=== PATIENT | female | born 1955 | race Caucasian/White ===

== ENCOUNTER 2016-12-28 11:45 | Emergency (ER) | payer MEDICARE ==
[2016-12-28 12:56] LABS: #Basophils 0.1 thou/uL (0.0-0.2); #Eosinphils 1.1 thou/uL (0.0-0.7); #Monocytes 0.9 thou/uL (0.11-0.59); #Neutrophils 8.9 thou/uL (1.40-6.50); %Basophils 0.5 % (0.0-1.0); %Eosinophils 7.5 % (0.0-10.0); %Lymphocytes 21.3 % (21.0-51.0); %Monocytes 6.3 % (0.0-10.0); Hematocrit 49.4 % (36.0-47.0); Mean Platelet Volume 8.7 fL (7.4-10.4); Red Blood Cell (RBC) Count 5.25 mill/uL (4.20-5.40); White Blood Cell (WBC) Count 13.9 thou/uL (4.8-10.8)
[2016-12-28 13:17] LABS: Lactic Acid - Sepsis 2.5 mmol/L (0.5-2.2)
[2016-12-28 13:23] LABS: ALT (SGPT) 33 U/L (8-55); AST (SGOT) 30 U/L (5-34); Alkaline Phosphatase 113 U/L (40-150); Anion Gap 14 mmol/L (10-20); BUN (Urea Nitrogen) 15 mg/dL (9.8-20.1); Bilirubin, Total 0.4 mg/dL (0.2-1.2); Calc. Creatinine Clearance 0 mL/min (70-130); Calcium 10.5 mg/dL (7.8-10.44); Carbon Dioxide 27 mmol/L (23-31); Chloride 103 mmol/L (98-107); Estimated GFR-MDRD 46; Globulin 3.5 g/dL (2.4-3.5)
--- NOTE | 2016-12-28 14:06 | CT ---
CT FACE WITH IV CONTRAST: HISTORY: Facial infection. Swelling. Fever. FINDINGS: The globes, mandible, and zygomatic arches are intact. Large lobulated mucous retention cyst is appa rent within the right maxillary sinus. No air fluid levels are visible. No retrobulbar orbital lesi ons are evident. There is prominent edema within the right periorbital soft tissues. A well-circums cribed fluid collection is not evident. IMPRESSION: 1. Prominent right periorbital soft tissue edema without drainable abscess or retrobulbar or orbital abnormality. 2. Mucous retention cyst right maxillary sinus. POS: [facility]
[2016-12-28] MEDS ORDERED: ISOVUE-370 76%-LOCM 1 ML ONE (17:22)
== END 2016-12-28 14:57 | disposition home or self-care (01) ==
LOC: ERS 11:45
DX: L03.211 Cellulitis of face (principal); F17.210 Nicotine dependence, cigarettes, uncomplicated; E11.9 Type 2 diabetes mellitus without complications; E78.5 Hyperlipidemia, unspecified; Z79.84 Long term (current) use of oral hypoglycemic drugs; Z79.899 Other long term (current) drug therapy
CPT/HCPCS: 70487; 80053; 83605; 85025; 85652; 86140; 96365; J3370

== ENCOUNTER 2017-01-02 12:10 | Inpatient (IN) | payer MEDICARE ==
[2017-01-02] MEDS: diphenhydrAMINE 25 MG CAP PO PRN ×2 (13:28→17:30)
[2017-01-02 13:46] LABS: #Basophils 0.1 thou/uL (0.0-0.2); #Eosinphils 0.9 thou/uL (0.0-0.7); #Lymphocytes 2.5 thou/uL (1.20-3.40); #Monocytes 0.9 thou/uL (0.11-0.59); #Neutrophils 8.2 thou/uL (1.40-6.50); %Basophils 0.6 % (0.0-1.0); %Eosinophils 6.8 % (0.0-10.0); %Monocytes 7.4 % (0.0-10.0); Hematocrit 48.2 % (36.0-47.0); Mean Platelet Volume 8.2 fL (7.4-10.4); Red Blood Cell (RBC) Count 5.12 mill/uL (4.20-5.40); White Blood Cell (WBC) Count 12.6 thou/uL (4.8-10.8)
[2017-01-02 14:04] LABS: ALT (SGPT) 35 U/L (8-55); AST (SGOT) 24 U/L (5-34); Alkaline Phosphatase 114 U/L (40-150); Anion Gap 13 mmol/L (10-20); BUN (Urea Nitrogen) 19 mg/dL (9.8-20.1); Bilirubin, Total 0.4 mg/dL (0.2-1.2); Calc. Creatinine Clearance 0 mL/min (70-130); Calcium 10.8 mg/dL (7.8-10.44); Carbon Dioxide 27 mmol/L (23-31); Chloride 101 mmol/L (98-107); Estimated GFR-MDRD 41; Globulin 3.1 g/dL (2.4-3.5); Lactic Acid - Sepsis 1.9 mmol/L (0.5-2.2); Protein, Total 7.5 g/dL (6.0-8.3)
[2017-01-02] MEDS ORDERED: cefTRIAXone\\ROCEPHIN 2 GM in Sodium Chloride 0.9% 100 ML IVPB SCH (14:30)
[2017-01-02 15:53] VITALS: BMI 22.6
[2017-01-02] MEDS ORDERED: Ondansetron ODT 4 MG TAB SL PRN (15:53)
[2017-01-02] MEDS ORDERED: Ondansetron HCl/PF 4 MG/2 ML Vial IVP PRN ×2 (15:53→15:59)
[2017-01-02] MEDS ORDERED: Zolpidem Tartrate 5 MG TAB PO PRN (15:59)
[2017-01-02] MEDS ORDERED: Senokot 8.6 MG TAB PO PRN (15:59)
[2017-01-02] MEDS ORDERED: Diabetic Tussin 200 MG/10 ML UDCUP PO PRN (15:59)
[2017-01-02] MEDS ORDERED: Dextrose 5% in Water 1,000 ML IV PRN (15:59)
[2017-01-02] MEDS ORDERED: Milk Of Magnesia 30 ML UDCUP PO PRN (15:59)
[2017-01-02] MEDS ORDERED: Ondansetron ODT 4 MG TAB PO PRN (15:59)
[2017-01-02] MEDS ORDERED: Artificial Tears 18 DROP/0.9 ML EA EYE PRN (15:59)
[2017-01-02] MEDS ORDERED: cefTRIAXone\\ROCEPHIN 1 GM in Sodium Chloride 0.9% 100 ML IVPB SCH (15:59)
[2017-01-02] MEDS ORDERED: Eucerin (Mineral Oil/Petrolatum,White) 30 gm Jar TOP PRN (15:59)
[2017-01-02] MEDS ORDERED: Loperamide HCl 2 MG CAP PO PRN (15:59)
[2017-01-02] MEDS ORDERED: Mag-Al 1200 mg/1200 mg/30 ML UDCUP PO PRN (15:59)
[2017-01-02] MEDS ORDERED: HumaLOG 300 UNITS/3 ML VIAL SC PRN ×2 (15:59)
[2017-01-02] MEDS ORDERED: Dextrose 50% Abboject 50 ML SYRINGE SLOW IVP PRN (15:59)
[2017-01-02] MEDS ORDERED: Sodium Chloride 0.65% Nasal 44 ML BOT EA NARE PRN (15:59)
[2017-01-02] MEDS ORDERED: Chloraseptic Spray 180 ml Bottle PO PRN (15:59)
[2017-01-02] MEDS ORDERED: hydrALAZINE 20 MG/ML VIAL SLOW IVP PRN (15:59)
--- NOTE | 2017-01-02 16:13 | HP ---
PRIMARY CARE PHYSICIAN: Kaia Newby M.D. REASON FOR ADMISSION: Facial cellulitis, failed outpatient therapy. HISTORY OF PRESENT ILLNESS: A 61-year-old female with a history of diabetes, hypertension, and dyslipidemia, who presented to the emergency room for evaluation of facial redness. The patient reports that for the last two weeks, she is experiencing redness on her face which is gradually getting worse. Initially, patient noticed redness around her nose and chin and subsequently that redness spread to her orbit as well as entire right side of face as well as that also spreading to other side of the face as well as in neck area. The patient feels burning sensation in her face. She denies any fever. She is not sure how this started. She does not have any itching. She denies any insect bite. She denies any trauma. She denies any popping any pimples. She denies any nasal pulling of hair. She denies any diplopia or visual symptoms. The patient recently visited emergency room, at that time she had facial bone CT scan which showed soft tissue edema without any drainable fluid collection. The patient was given clindamycin on 12/29/2016. On that emergency room visit, the patient was given vancomycin. The patient reports that even after taking those antibiotics therapies, she is not feeling any better, but feels more worse and that is why she came back again to the emergency room for evaluation. ALLERGIES: CODEINE, FLUCONAZOLE. CURRENT HOME MEDICATIONS: Pravastatin 20 mg p.o. at bedtime, metformin 500 mg twice daily, patient was given clindamycin in recent emergency room visit on . PAST MEDICAL HISTORY: Diabetes type 2, dyslipidemia. PAST SURGICAL HISTORY: Reviewed and negative. PAST PSYCHIATRIC HISTORY: Reviewed and negative. SOCIAL HISTORY: Patient denies any alcohol abuse. She denies any illicit drug abuse. She smokes variable number of cigarettes on a daily basis, but she reports and claims that she is not a heavy smoker. FAMILY HISTORY: No strong family history of premature coronary artery disease, stroke or cancer. EMERGENCY ROOM COURSE: Patient is given vancomycin and Rocephin. REVIEW OF SYSTEMS: The following complete review of systems was negative, unless otherwise mentioned in the HPI or below: Constitutional: Weight loss or gain, ability to conduct usual activities. Skin: Rash, itching. Eyes: Double vision, pain. ENT/Mouth: Nose bleeding, neck stiffness, pain, tenderness. Cardiovascular: Palpitations, dyspnea on exertion, orthopnea. Respiratory: Shortness of breath, wheezing, cough, hemoptysis, fever or night sweats. Gastrointestinal: Poor appetite, abdominal pain, heartburn, nausea, vomiting, constipation, or diarrhea. Genitourinary: Urgency, frequency, dysuria, nocturia. Musculoskeletal: Pain, swelling. Neurologic/Psychiatric: Anxiety, depression. Allergy/Immunologic: Skin rash, bleeding tendency. Please see my HPI for pertinent positives and negatives. All other review of systems reviewed and negative except as mentioned in the HPI. PHYSICAL EXAMINATION: VITAL SIGNS: On arrival, blood pressure 130/78, pulse 80, respiratory rate 16, temperature 97.5, saturation 98% on room air, weight 63.5 kilograms. GENERAL: Patient is currently alert, awake, no obvious acute distress. HEAD: Normocephalic, atraumatic. EYES: The patient does have periorbital edema on the right side. Extraocular muscle intact. No nystagmus. FACE: Patient does have facial erythema on the entire face as well as on the neck and upper part of chest. The patient also has facial edema. NECK: No JVD, no thyromegaly, no carotid bruits. Skin rash noted on the neck, no lymph nodes, no meningeal signs of irritation. LUNGS: Clear to auscultation without any rhonchi or rales. CARDIAC: S1, S2 regular without any murmur, no gallop, no rub. ABDOMEN: Soft, bowel sounds present, nontender, nondistended. No organomegaly , no mass, no suprapubic tenderness. BACK: Unremarkable, no CVA tenderness. EXTREMITIES: Upper extremity passive movement of all joints are normal. Lower extremities: No edema. Good peripheral pulsation. SKIN: The patient does have erythema, warmth, and swelling, most of the face as well as neck and upper chest is involved with this rash with periorbital edema. NEUROLOGIC: Nonfocal examination. SIGNIFICANT LABS: BMP: Sodium 137, potassium 4.0, chloride 101, carbon dioxide 27, anion gap 13, BUN 19, creatinine 1.31, glucose 123, calcium 10.8. LFT: Protein 7.5, albumin 4.4, alkaline phosphatase 114, AST 24, ALT 35. CBC: WBC 12.6, hemoglobin 15.5 , platelets 338. Lactic acid 1.9, facial bone CT scan was done on 12/28/2016 which showing prominent right periorbital soft tissue edema without any drainable abscess, mucous retention cyst in the right maxillary sinus. ASSESSMENT AND PLAN: IMPRESSION: 1. Acute on chronic kidney failure. This patient has elevated creatinine at 1.31. The patient will be given intravenous fluid and we will repeat basic metabolic panel tomorrow. 2. Right-sided facial cellulitis, failed outpatient therapy. At this point, we will continue with broad spectrum antibiotic therapy with vancomycin and Rocephin to cover staphylococcus and streptococcal organism. Dermatitis is in differential. Erysipelas is also in differential. We will consult Dr. Layton for evaluation. We will check CRP, ESR, hepatitis, syphilis and HIV panel. 3. Diabetes type 2. We will continue metformin 500 mg p.o. twice daily and insulin as per sliding scale protocol. Diabetic diet will be given. 4. Dyslipidemia. We will continue pravastatin 20 mg p.o. at bedtime. 5. Tobacco abuse disorder. Smoking cessation counseling given. Healthy lifestyle measures discussed with the patient. 6. Deep venous thrombosis prophylaxis. Lovenox 40 mg subcutaneously daily. 7. Gastrointestinal prophylaxis. Pepcid 20 mg p.o. b.i.d. 8. Code status: The patient is FULL CODE. The patient does not have any surrogate decision maker. Disposition plan based on clinical course, likely this patient will require hospitalization more than 2 midnights. Plan of care discussed with the patient in detail. MTDD
[2017-01-02] MEDS: Sodium Chloride 0.9% 1,000 ML IV SCH ×3 (16:50→20:44)
[2017-01-02] MEDS: metFORMIN 500 MG TAB PO SCH (16:51)
[2017-01-02] MEDS: cefTRIAXone\\ROCEPHIN 1 GM, Syringe 0.4 ML in Sterile Water 9.6 ML SLOW IVP SCH (17:29)
[2017-01-02] MEDS: Loratadine 10 MG TAB PO PRN (17:31)
[2017-01-02] MEDS: Famotidine 20 MG TAB PO SCH (20:23)
[2017-01-02] MEDS: Simvastatin 5 MG TAB PO SCH (20:24)
[2017-01-02] MEDS: Acetaminophen 325 MG TAB PO PRN (20:42)
[2017-01-02] MEDS ORDERED: FLU VACC QS2017-18 36 mo. & older 0.5 ML SYRINGE IM ONE (21:00)
[2017-01-03] MEDS ORDERED: Morphine 4 MG/ML VIAL SLOW IVP SCH (00:15)
[2017-01-03 00:24] LABS: Bilirubin Negative (Negative); Blood, Urine Negative (Negative); Glucose, Urine (Dipstick) Negative (Negative); Ketone, Urine Negative (Negative); Nitrite Negative (Negative); Protein, Urine (Dipstick) Negative (Neg-Trace); Urobilinogen 0.2 mg/dL (0.2-1.0)
[2017-01-03 00:26] LABS: Bacteria/HPF None Seen HPF (None Seen); Hyaline Casts/LPF 0-3 HYALINE CAST LPF (0-3 Hyaline); RBC/HPF 0-3 HPF (0-3); Squamous Epithelial None Seen HPF (0-3); WBC/HPF None Seen HPF (0-3)
[2017-01-03] MEDS: diphenhydrAMINE 25 MG CAP PO PRN ×3 (01:25→19:57)
[2017-01-03] MEDS: Acetaminophen 325 MG TAB PO PRN ×3 (01:25→13:43)
[2017-01-03 04:58] LABS: #Basophils 0.1 thou/uL (0.0-0.2); #Eosinphils 0.8 thou/uL (0.0-0.7); #Lymphocytes 2.6 thou/uL (1.20-3.40); #Monocytes 0.8 thou/uL (0.11-0.59); #Neutrophils 6.3 thou/uL (1.40-6.50); %Basophils 0.9 % (0.0-1.0); %Lymphocytes 24.4 % (21.0-51.0); %Monocytes 7.4 % (0.0-10.0); Hematocrit 42.6 % (36.0-47.0); Red Blood Cell (RBC) Count 4.51 mill/uL (4.20-5.40); White Blood Cell (WBC) Count 10.5 thou/uL (4.8-10.8)
[2017-01-03] MEDS: Sodium Chloride 0.9% 1,000 ML IV SCH ×2 (05:40→17:01)
[2017-01-03 05:41] LABS: Anion Gap 13 mmol/L (10-20); BUN (Urea Nitrogen) 18 mg/dL (9.8-20.1); Calc. Creatinine Clearance 56 mL/min (70-130); Calcium 9.7 mg/dL (7.8-10.44); Carbon Dioxide 26 mmol/L (23-31); Chloride 107 mmol/L (98-107); Estimated GFR-MDRD 54
[2017-01-03] MEDS: Saccharomyces boulardii 250 MG CAP PO SCH (07:53)
[2017-01-03] MEDS: metFORMIN 500 MG TAB PO SCH ×2 (07:53→17:05)
[2017-01-03] MEDS: Famotidine 20 MG TAB PO SCH ×2 (07:53→19:57)
[2017-01-03] MEDS: Enoxaparin Sodium 40 MG/0.4 ML SYRINGE SC SCH (07:55)
--- NOTE | 2017-01-03 11:33 | PDOC.PN ---
- Subjective Encounter Start Date: 01/03/17 Encounter Start Time: 09:00 -: old records requested/rev Patient seen and examined. No new complaints. No overnight events - Objective Resuscitation Status: Resuscitation Status FULL:Full Resuscitation MAR Reviewed: Yes Vital Signs & Weight: Vital Signs (12 hours) Temp Pulse Resp BP BP BP Pulse Ox 01/03/17 11:20 98.6 F 66 16 124/67 96 01/03/17 08:00 98.2 F 60 16 106/54 L 96 01/03/17 07:26 97.5 F L 73 18 01/03/17 04:43 97.5 F L 73 18 108/73 96 01/02/17 23:35 98.2 F 68 16 105/69 I&O: 01/02/17 01/03/17 01/04/17 06:59 06:59 06:59 Intake Total 2400 Balance 2400 Result Diagrams: 01/03/17 04:16 01/03/17 04:16 Additional Labs: Accuchecks 01/03/17 01/02/17 05:45 20:12 POC Glucose 95 103 Phys Exam - Physical Examination Constitutional: NAD HEENT: PERRLA, moist MMs, sclera anicteric fascial cellulitis Neck: no JVD, supple Respiratory: no wheezing, no rales, no rhonchi Cardiovascular: RRR, no significant murmur, no rub Gastrointestinal: soft, non-tender, no distention, positive bowel sounds Musculoskeletal: no edema, pulses present Neurological: non-focal, normal sensation Lymphatic: no nodes Psychiatric: normal affect, A&O x 3 Skin: no rash, normal turgor Dx/Plan (1) Acute kidney failure Status: Resolved (2) Facial cellulitis Code(s): L03.211 - CELLULITIS OF FACE Status: Acute (3) Diabetes type 2, controlled Code(s): E11.9 - TYPE 2 DIABETES MELLITUS WITHOUT COMPLICATIONS Status: Chronic (4) Dyslipidemia Code(s): E78.5 - HYPERLIPIDEMIA, UNSPECIFIED Status: Chronic - Plan cont current plan of care, continue antibiotics * continue iv antibiotics as ordered * medication reviewed as below * symptomatic treatment * ID consulted, await input * follow culture. Review of Systems - Review of Systems ENT: negative: Ear Pain, Ear Discharge, Nose Pain, Nose Discharge, Nose Congestion, Mouth Pain, Mouth Swelling, Throat Pain, Throat Swelling, Other Respiratory: negative: Cough, Dry, Shortness of Breath, Hemoptysis, SOB with Excertion, Pleuritic Pain, Sputum, Wheezing Cardiovascular: negative: Chest Pain, Palpitations, Orthopnea, Paroxysmal Noc. Dyspnea, Edema, Light Headedness, Other Gastrointestinal: negative: Nausea, Vomiting, Abdominal Pain, Diarrhea, Constipation, Melena, Hematochezia, Other Genitourinary: negative: Dysuria, Frequency, Incontinence, Hematuria, Retention , Other Musculoskeletal: negative: Neck Pain, Shoulder Pain, Arm Pain, Back Pain, Hand Pain, Leg Pain, Foot Pain, Other - Medications/Allergies Allergies/Adverse Reactions: Allergies Allergy/AdvReac Type Severity Reaction Status Date / Time codeine Allergy Verified 01/02/17 15:54 fluconazole Allergy Verified 01/02/17 15:54 Medications: Current Medications Acetaminophen (Tylenol) 650 mg PO Q4H PRN PRN Reason: Headache/Fever or Pain Last Admin: 01/03/17 05:40 Dose: 650 mg Al Hydroxide/Mg Hydroxide (Maalox) 30 ml PO Q6H PRN PRN Reason: Heartburn or Indigestion Artificial Tears (Tears Naturale) 0 drop EA EYE PRN PRN PRN Reason: Dry Eyes Dextrose/Water (Dextrose 50%) 25 gm SLOW IVP PRN PRN PRN Reason: Hypoglycemia Diphenhydramine HCl (Benadryl) 25 mg PO Q6H PRN PRN Reason: Itching & Insomnia Last Admin: 01/03/17 01:25 Dose: 25 mg Enoxaparin Sodium (Lovenox) 40 mg SC 0900 [facility] Last Admin: 01/03/17 07:55 Dose: 40 mg Famotidine (Pepcid) 20 mg PO BID [facility] Last Admin: 01/03/17 07:53 Dose: 20 mg Glucagon (Glucagon) 1 mg IM PRN PRN PRN Reason: Hypoglycemia Guaifenesin (Robitussin Sf) 200 mg PO Q4H PRN PRN Reason: Cough Hydralazine HCl (Apresoline) 10 mg SLOW IVP Q4H PRN PRN Reason: Systolic BP > 180 Dextrose/Water (D5w) 1,000 mls @ 0 mls/hr IV .Q0M PRN; As Directed PRN Reason: Hypoglycemia Sodium Chloride (Normal Saline 0.9%) 1,000 mls @ 100 mls/hr IV .Q10H [facility] Last Admin: 01/03/17 05:40 Dose: 1,000 mls Vancomycin HCl 1 gm/ Device 200 mls @ 200 mls/hr IVPB Q24HR@1400 [facility] Ceftriaxone Sodium 1 gm/ (Syringe 0.4 ml/ Sterile Water) 10 mls @ 120 mls/hr SLOW IVP 1800 [facility] Last Admin: 01/02/17 17:29 Dose: 10 mls Insulin Human Lispro (Humalog) 0 units SC .MODERATE SLIDING SC PRN PRN Reason: Moderate Correctional Scale Insulin Human Lispro (Humalog) 0 units SC .BEDTIME SLIDING SC PRN PRN Reason: Bedtime Correctional Scale Loperamide HCl (Imodium) 2 mg PO PRN PRN PRN Reason: Diarrhea/Loose Stools Loratadine (Claritin) 10 mg PO DAILYPRN PRN PRN Reason: Sinus Symptoms Last Admin: 01/02/17 17:31 Dose: 10 mg Magnesium Hydroxide (Milk Of Magnesium) 30 ml PO DAILYPRN PRN PRN Reason: Constipation Metformin HCl (Glucophage) 500 mg PO BID-[facility] Last Admin: 01/03/17 07:53 Dose: 500 mg Mineral Oil/White Petrolatum (Eucerin Cream) 0 gm TOP BIDPRN PRN PRN Reason: Dry Skin Miscellaneous Medication (Pharmacy To Dose) 1 each IVPB PRN PRN PRN Reason: Pharmacy to dose Ondansetron HCl (Zofran Odt) 4 mg PO Q6H PRN PRN Reason: Nausea/Vomiting Ondansetron HCl (Zofran) 4 mg IVP Q6H PRN PRN Reason: Nausea/Vomiting Phenol (Chloraseptic [place] 180 Ml Bot) 0 ml PO PRN PRN PRN Reason: Sore Throat Saccharomyces Boulardii (Florastor) 250 mg PO DAILY [facility] Last Admin: 01/03/17 07:53 Dose: 250 mg Senna (Senokot) 2 tab PO HSPRN PRN PRN Reason: Constipation Simvastatin (Zocor) 10 mg PO HS [facility] Last Admin: 01/02/17 20:24 Dose: 10 mg Sodium Chloride ([place] Nasal [place] 0.65%) 0 ml EA NARE QIDPRN PRN PRN Reason: Nasal Congestion Zolpidem Tartrate (Ambien) 5 mg PO HSPRN PRN PRN Reason: Insomnia
[2017-01-03] MEDS ORDERED: cefTRIAXone\\ROCEPHIN 1 GM, Syringe 0.4 ML in Sterile Water 9.6 ML SLOW IVP SCH (13:00)
[2017-01-03] MEDS ORDERED: Ketorolac Tromethamine 30 MG/ML VIAL IVP PRN (13:55)
[2017-01-03] MEDS ORDERED: Vancomycin HCl 1 GM in Premix Bag 1 BAG IVPB SCH (14:00)
[2017-01-03] MEDS: cefTRIAXone\\ROCEPHIN 1 GM, Syringe 0.4 ML in Sterile Water 9.6 ML SLOW IVP SCH (17:03)
[2017-01-03] MEDS: Loratadine 10 MG TAB PO PRN (17:11)
[2017-01-03] MEDS: Simvastatin 5 MG TAB PO SCH (19:55)
[2017-01-03] MEDS: traMADol HCl 50 MG TAB PO PRN (19:57)
[2017-01-04] MEDS: Sodium Chloride 0.9% 1,000 ML IV SCH ×3 (02:46→23:32)
[2017-01-04] MEDS: diphenhydrAMINE 25 MG CAP PO PRN ×3 (02:46→15:17)
[2017-01-04] MEDS: traMADol HCl 50 MG TAB PO PRN ×3 (02:46→15:17)
[2017-01-04] MEDS: Saccharomyces boulardii 250 MG CAP PO SCH (08:43)
[2017-01-04] MEDS: Famotidine 20 MG TAB PO SCH ×2 (08:43→20:46)
[2017-01-04] MEDS: metFORMIN 500 MG TAB PO SCH ×2 (08:43→17:47)
[2017-01-04] MEDS: Enoxaparin Sodium 40 MG/0.4 ML SYRINGE SC SCH (08:44)
--- NOTE | 2017-01-04 12:17 | PDOC.PN ---
- Subjective Encounter Start Date: 01/04/17 Encounter Start Time: 08:30 no change in fascial rash, no fever, she feels burning and itching - Objective Resuscitation Status: Resuscitation Status FULL:Full Resuscitation MAR Reviewed: Yes Vital Signs & Weight: Vital Signs (12 hours) Temp Pulse Resp BP Pulse Ox 01/04/17 08:00 98.2 F 68 16 129/85 97 01/04/17 04:00 98.1 F 61 20 125/78 94 L I&O: 01/03/17 01/04/17 01/05/17 06:59 06:59 06:59 Intake Total 2400 5530 Balance 2400 5530 Result Diagrams: 01/03/17 04:16 01/03/17 04:16 Additional Labs: Accuchecks 01/04/17 01/04/17 01/03/17 10:57 04:50 19:56 POC Glucose 108 115 H 127 H 01/03/17 16:53 POC Glucose 78 Phys Exam - Physical Examination Constitutional: NAD HEENT: PERRLA (f), moist MMs fascial rash Neck: no JVD, supple Respiratory: no wheezing, no rales, no rhonchi Cardiovascular: RRR, no significant murmur, no rub Gastrointestinal: soft, non-tender, no distention, positive bowel sounds Musculoskeletal: no edema, pulses present Neurological: non-focal, normal sensation Lymphatic: no nodes Psychiatric: normal affect, A&O x 3 Skin: normal turgor Deviation from normal: fascial rash Dx/Plan (1) Acute kidney failure Status: Resolved (2) Facial cellulitis Code(s): L03.211 - CELLULITIS OF FACE Status: Acute (3) Diabetes type 2, controlled Code(s): E11.9 - TYPE 2 DIABETES MELLITUS WITHOUT COMPLICATIONS Status: Chronic (4) Dyslipidemia Code(s): E78.5 - HYPERLIPIDEMIA, UNSPECIFIED Status: Chronic - Plan cont current plan of care, continue antibiotics * Dr Layton opinion pending * so far does not see any change with antibiotics * medication reviewed as below * symptomatic treatment * will need dermatology on discharge. Review of Systems - Review of Systems ENT: negative: Ear Pain, Ear Discharge, Nose Pain, Nose Discharge, Nose Congestion, Mouth Pain, Mouth Swelling, Throat Pain, Throat Swelling, Other Respiratory: negative: Cough, Dry, Shortness of Breath, Hemoptysis, SOB with Excertion, Pleuritic Pain, Sputum, Wheezing Cardiovascular: negative: Chest Pain, Palpitations, Orthopnea, Paroxysmal Noc. Dyspnea, Edema, Light Headedness, Other Gastrointestinal: negative: Nausea, Vomiting, Abdominal Pain, Diarrhea, Constipation, Melena, Hematochezia, Other Genitourinary: negative: Dysuria, Frequency, Incontinence, Hematuria, Retention , Other Musculoskeletal: negative: Neck Pain, Shoulder Pain, Arm Pain, Back Pain, Hand Pain, Leg Pain, Foot Pain, Other Skin: negative: Rash, Lesions, Ismael, Bruising, Other - Medications/Allergies Allergies/Adverse Reactions: Allergies Allergy/AdvReac Type Severity Reaction Status Date / Time codeine Allergy Verified 01/02/17 15:54 fluconazole Allergy Verified 01/02/17 15:54 Medications: Current Medications Acetaminophen (Tylenol) 650 mg PO Q4H PRN PRN Reason: Headache/Fever or Pain Last Admin: 01/03/17 13:43 Dose: 650 mg Al Hydroxide/Mg Hydroxide (Maalox) 30 ml PO Q6H PRN PRN Reason: Heartburn or Indigestion Artificial Tears (Tears Naturale) 0 drop EA EYE PRN PRN PRN Reason: Dry Eyes Dextrose/Water (Dextrose 50%) 25 gm SLOW IVP PRN PRN PRN Reason: Hypoglycemia Diphenhydramine HCl (Benadryl) 25 mg PO Q6H PRN PRN Reason: Itching & Insomnia Last Admin: 01/04/17 08:42 Dose: 25 mg Enoxaparin Sodium (Lovenox) 40 mg SC 0900 [facility] Last Admin: 01/04/17 08:44 Dose: Not Given Famotidine (Pepcid) 20 mg PO BID [facility] Last Admin: 01/04/17 08:43 Dose: 20 mg Glucagon (Glucagon) 1 mg IM PRN PRN PRN Reason: Hypoglycemia Guaifenesin (Robitussin Sf) 200 mg PO Q4H PRN PRN Reason: Cough Hydralazine HCl (Apresoline) 10 mg SLOW IVP Q4H PRN PRN Reason: Systolic BP > 180 Dextrose/Water (D5w) 1,000 mls @ 0 mls/hr IV .Q0M PRN; As Directed PRN Reason: Hypoglycemia Sodium Chloride (Normal Saline 0.9%) 1,000 mls @ 100 mls/hr IV .Q10H [facility] Last Admin: 01/04/17 02:46 Dose: 1,000 mls Vancomycin HCl 1 gm/ Device 200 mls @ 200 mls/hr IVPB Q24HR@1400 [facility] Last Admin: 01/03/17 13:44 Dose: 200 mls Ceftriaxone Sodium 1 gm/ (Syringe 0.4 ml/ Sterile Water) 10 mls @ 120 mls/hr SLOW IVP 1800 [facility] Last Admin: 01/03/17 17:03 Dose: 10 mls Insulin Human Lispro (Humalog) 0 units SC .MODERATE SLIDING SC PRN PRN Reason: Moderate Correctional Scale Insulin Human Lispro (Humalog) 0 units SC .BEDTIME SLIDING SC PRN PRN Reason: Bedtime Correctional Scale Ketorolac Tromethamine (Toradol) 15 mg IVP Q6H PRN PRN Reason: Moderate to Severe Pain (6-10) Stop: 01/08/17 13:56 Loperamide HCl (Imodium) 2 mg PO PRN PRN PRN Reason: Diarrhea/Loose Stools Loratadine (Claritin) 10 mg PO DAILYPRN PRN PRN Reason: Sinus Symptoms Last Admin: 01/03/17 17:11 Dose: 10 mg Magnesium Hydroxide (Milk Of Magnesium) 30 ml PO DAILYPRN PRN PRN Reason: Constipation Metformin HCl (Glucophage) 500 mg PO BID-[facility] Last Admin: 01/04/17 08:43 Dose: 500 mg Mineral Oil/White Petrolatum (Eucerin Cream) 0 gm TOP BIDPRN PRN PRN Reason: Dry Skin Miscellaneous Medication (Pharmacy To Dose) 1 each IVPB PRN PRN PRN Reason: Pharmacy to dose Ondansetron HCl (Zofran Odt) 4 mg PO Q6H PRN PRN Reason: Nausea/Vomiting Ondansetron HCl (Zofran) 4 mg IVP Q6H PRN PRN Reason: Nausea/Vomiting Phenol (Chloraseptic [place] 180 Ml Bot) 0 ml PO PRN PRN PRN Reason: Sore Throat Saccharomyces Boulardii (Florastor) 250 mg PO DAILY [facility] Last Admin: 01/04/17 08:43 Dose: 250 mg Senna (Senokot) 2 tab PO HSPRN PRN PRN Reason: Constipation Simvastatin (Zocor) 10 mg PO [facility] Last Admin: 01/03/17 19:55 Dose: 10 mg Sodium Chloride ([place] Nasal [place] 0.65%) 0 ml EA NARE QIDPRN PRN PRN Reason: Nasal Congestion Tramadol HCl (Ultram) 50 mg PO Q4H PRN PRN Reason: Moderate to Severe Pain (6-10) Last Admin: 01/04/17 08:42 Dose: 50 mg Zolpidem Tartrate (Ambien) 5 mg PO HSPRN PRN PRN Reason: Insomnia
--- NOTE | 2017-01-04 13:15 | CON ---
DATE OF CONSULTATION: 01/04/2017 REASON FOR CONSULTATION: Facial inflammatory changes. HISTORY OF PRESENT ILLNESS: A 61-year-old with history of type 2 diabetes and dyslipidemia, who live s in [place], and has had 2-3 weeks history of facial redness with markedly pruritus. No specific exposure and inflammatory process seems to be spreading towards the upper areas of the chest and neck . Also, she noticed pruritic erythematous lesions in the extensor aspect of forearms. No fever or c hills. No headaches, no visual symptoms, sore throat, odynophagia, dysphagia. No neck pain. No jayant st pain or cough. No dyspnea. No abdominal pain or diarrhea. No genitourinary symptoms. Has been gaining some weight lately. No joint symptoms. PAST MEDICAL HISTORY: Type 2 diabetes and dyslipidemia. MEDICATIONS: Pravastatin, metformin, clindamycin, and currently she is receiving ceftriaxone, diphen hydramine, Zocor, vancomycin. FAMILY HISTORY: Noncontributory. SOCIAL HISTORY: Current smoker. Lives in [place]. ALLERGIES: CODEINE and FLUCONAZOLE. PHYSICAL EXAMINATION: VITAL SIGNS: Showed normal temperature, blood pressure 120/85, pulse 68, respirations 16, O2 sat 97% . SKIN: Shows area of extensive erythema in a very symmetric distribution, a little bit more intense o n the right side of face, spreading towards the neck, upper chest and extensor aspect of right and le ft forearms. There is associated exfoliation with this eruption particularly in the facial area. Sh e has loss of eyelids and some element of lichenification. NECK: No lymphadenopathy. HEENT: Sclerae and conjunctivae normal. Nasal passage is patent. Oral cavity with no [place] teeth, otherwise normal. Oral cavity mucosa with surfaces. NECK: Supple, no jugular venous distention. LUNGS: Clear to auscultation and percussion. HEART: S1, S2, regular rate. No S3, S4. ABDOMEN: Soft, not distended or tender. No ascites. No bladder distention. EXTREMITIES: No joint inflammatory activity. Pulses are 1+ in dorsalis pedis. Plantar responses we re flexor. Moves extremities equally. NEUROLOGIC: Cognitive function appears to be intact. LABORATORY DATA: The serologies for syphilis, hepatitis and HIV negative. White cell count 12.6 and 10.5, hemoglobin 15, platelets 296, normal differential with a little bit of lymphocytopenia. Chemi stry; creatinine is 1.3 on arrival and 1.04, glucose 123 and 92. Liver profile normal, calcium 10.8 and 9.7, albumin 4.4. Urinalysis was normal. Facial bones CT with right periorbital edema, no absce ss. ASSESSMENT: 1. Diabetes type 2. 2. Facial neck and extremity erythema which is chronic with lichenification associated with pruritus . DISCUSSION: Most likely scenario with differential diagnosis includes contact dermatitis versus syst emic type for hypersensitivity reaction with the changes described. Infectious process appears to be less likely. Switch her to topical corticosteroids, may need systemic as well, although with diabet es that would be somewhat problematic, but we will start with systemic or maybe with a Medrol Dosepak and then a little bit of topical as well.
[2017-01-04] MEDS: methylPREDNISolone 4 mg Tablet PO SCH ×3 (13:59→20:46)
[2017-01-04] MEDS: Simvastatin 5 MG TAB PO SCH (20:46)
[2017-01-04] MEDS: ALCLOMETASONE DIPROPIONATE TOP SCH (21:24)
[2017-01-04] MEDS: Hydrocortisone 1% Cream 30 GM TUBE TOP SCH (21:26)
[2017-01-05] MEDS: Sodium Chloride 0.9% 1,000 ML IV SCH (00:15)
[2017-01-05 07:51] VITALS: BP 119/71; TEMP 98.3
[2017-01-05] MEDS: Acetaminophen 325 MG TAB PO PRN (07:59)
[2017-01-05] MEDS: metFORMIN 500 MG TAB PO SCH (08:00)
[2017-01-05] MEDS ORDERED: methylPREDNISolone 4 mg Tablet PO SCH ×3 (08:00→21:00)
[2017-01-05] MEDS: Saccharomyces boulardii 250 MG CAP PO SCH (08:00)
[2017-01-05] MEDS: Famotidine 20 MG TAB PO SCH (08:00)
[2017-01-05] MEDS: Enoxaparin Sodium 40 MG/0.4 ML SYRINGE SC SCH (08:01)
[2017-01-05] MEDS: Hydrocortisone 1% Cream 30 GM TUBE TOP SCH (08:02)
[2017-01-05] MEDS: ALCLOMETASONE DIPROPIONATE TOP SCH (08:03)
--- NOTE | 2017-01-05 12:32 | PDOC.PN ---
- Subjective Encounter Start Date: 01/05/17 Encounter Start Time: 10:40 Patient seen and examined. No new complaints. No overnight events - Objective Resuscitation Status: Resuscitation Status FULL:Full Resuscitation MAR Reviewed: Yes Vital Signs & Weight: Vital Signs (12 hours) Temp Pulse Resp BP Pulse Ox 01/05/17 08:00 98.3 F 68 15 119/71 01/05/17 07:51 98.3 F 68 16 119/71 92 L 01/05/17 05:27 93 L 01/05/17 04:00 98.0 F 70 20 116/71 92 L I&O: 01/04/17 01/05/17 01/06/17 06:59 06:59 06:59 Intake Total 5530 Balance 5530 Result Diagrams: 01/03/17 04:16 01/03/17 04:16 Additional Labs: Accuchecks 01/05/17 01/04/17 01/04/17 11:15 19:56 17:14 POC Glucose 158 H 149 H 105 Phys Exam - Physical Examination Constitutional: NAD HEENT: PERRLA, moist MMs, sclera anicteric Neck: no JVD, supple Respiratory: no wheezing, no rales, no rhonchi Cardiovascular: RRR, no significant murmur Gastrointestinal: soft, non-tender, no distention, positive bowel sounds Musculoskeletal: no edema, pulses present Neurological: non-focal, normal sensation Psychiatric: normal affect, A&O x 3 Skin: normal turgor Deviation from normal: fascial dermatitis Dx/Plan (1) Acute kidney failure Status: Resolved (2) Facial cellulitis Code(s): L03.211 - CELLULITIS OF FACE Status: Acute (3) Diabetes type 2, controlled Code(s): E11.9 - TYPE 2 DIABETES MELLITUS WITHOUT COMPLICATIONS Status: Chronic (4) Dyslipidemia Code(s): E78.5 - HYPERLIPIDEMIA, UNSPECIFIED Status: Chronic - Plan cont current plan of care * medication reviewed as below * symptomatic treatment * see discharge matty. Review of Systems - Review of Systems ENT: negative: Ear Pain, Ear Discharge, Nose Pain, Nose Discharge, Nose Congestion, Mouth Pain, Mouth Swelling, Throat Pain, Throat Swelling, Other Respiratory: negative: Cough, Dry, Shortness of Breath, Hemoptysis, SOB with Excertion, Pleuritic Pain, Sputum, Wheezing Cardiovascular: negative: Chest Pain, Palpitations, Orthopnea, Paroxysmal Noc. Dyspnea, Edema, Light Headedness, Other Gastrointestinal: negative: Nausea, Vomiting, Abdominal Pain, Diarrhea, Constipation, Melena, Hematochezia, Other Genitourinary: negative: Dysuria, Frequency, Incontinence, Hematuria, Retention , Other Musculoskeletal: negative: Neck Pain, Shoulder Pain, Arm Pain, Back Pain, Hand Pain, Leg Pain, Foot Pain, Other Skin: Rash. negative: Lesions, Ismael, Bruising, Other - Medications/Allergies Allergies/Adverse Reactions: Allergies Allergy/AdvReac Type Severity Reaction Status Date / Time codeine Allergy Verified 01/02/17 15:54 fluconazole Allergy Verified 01/02/17 15:54
--- NOTE | 2017-01-05 13:28 | DIS ---
PRIMARY CARE PHYSICIAN: [facility] call admission. DATE OF ADMISSION: 01/02/2017 DATE OF DISCHARGE: 01/05/2017 DISCHARGE DISPOSITION: Home. PRIMARY DISCHARGE DIAGNOSES: Facial dermatitis, acute kidney failure improved. SECONDARY DISCHARGE DIAGNOSES: Diabetes type 2, dyslipidemia, anxiety and depression. PRIMARY PROCEDURE/OPERATION: None. RADIOLOGICAL INVESTIGATION: Facial bone CT scan which was done on 12/28/2016 showed facial skin josh a without any abscess. SIGNIFICANT LABORATORIES: WBC 10.5, hemoglobin 13.8, platelet 296, ESR 2. Sodium 141, potassium 4.5 , BUN 18, creatinine 1.04, calcium 9.7. CRP less than 0.50. LFTs normal. Creatinine on admission 1 .31. Urinalysis normal. Hepatitis profile negative. HIV negative. Syphilis negative. Blood cultu re negative. DISCHARGE MEDICATIONS: Patient is given prescription of Medrol Dosepak to use as directed. The dania ent is given prescription for alclometasone dipropionate cream topical application b.i.d., Pepcid 20 mg p.o. b.i.d., fluoxetine 20 mg p.o. daily, metformin 500 mg p.o. b.i.d., pravastatin 20 mg p.o. at bedtime. CONTRAINDICATIONS: None. CODE STATUS: FULL CODE. INPATIENT CONSULTANTS: Dr. Layton was consulted while in hospital and he was not thinking that the fe briceño has cellulitis rather he was thinking dermatitis. ALLERGIES: CODEINE and FLUCONAZOLE. DISCHARGE PLAN: Post hospital, the patient will follow up with primary care physician and I advised the patient to follow up with automatic grinding machine operator for further evaluation. HOSPITAL COURSE: The patient is a 61-year-old female who reports that she was taking Diflucan for ye ast infection and after that she had correlation with a facial rash. Her rash was spread very rapidl y to the entire face as well as neck and upper part of chest. It was burning and itchy. The patient was presented to emergency room before admission and she had a CT facial bone which showed skin wall edema, but no abscess. She was given oral antibiotic therapy, but she did not have any improvement with antibiotic therapy. She came back in hospital and we considered as she failed outpatient therap y and kept in hospital and we tried with vancomycin and Rocephin for facial cellulitis. Even with IV antibiotic therapy, the patient's facial cellulitis was not improving and her ESR and CRP was normal . At that point, we suspected that the patient most likely has dermatitis. We treated her with a Me drol Dosepak and steroid topical application. Necessary patient education was given. Dr. Layton saw t his patient while in hospital and he agreed with the facial dermatitis diagnosis and I advised this p atient to follow up with Dermatology for further care. On admission, she had mild acute kidney injur y that was improved with IV fluid. All new medication prescription given. The patient is seen and examined at bedside today. Please se e my progress note from today for further details. Total time spent on discharge day 31 minutes.
[2017-01-06] MEDS ORDERED: methylPREDNISolone 4 mg Tablet PO SCH (08:00)
[2017-01-07] MEDS ORDERED: methylPREDNISolone 4 mg Tablet PO SCH (08:00)
[2017-01-08] MEDS ORDERED: methylPREDNISolone 4 mg Tablet PO SCH (08:00)
[2017-01-09] MEDS ORDERED: methylPREDNISolone 4 mg Tablet PO SCH (08:00)
== END 2017-01-05 11:16 | disposition home or self-care (01) | DRG 607 ==
LOC: ERS 12:10 → T4-A 14:30
PROVIDERS: ADMIT Internal Medicine; ATTEND Internal Medicine
DX: L30.9 Dermatitis, unspecified (principal); N17.9 Acute kidney failure, unspecified; I10 Essential (primary) hypertension; E11.9 Type 2 diabetes mellitus without complications; F32.9 Major depressive disorder, single episode, unspecified; E78.5 Hyperlipidemia, unspecified; Z88.5 Allergy status to narcotic agent; Z88.8 Allergy status to other drugs, medicaments and biological substances; Z79.84 Long term (current) use of oral hypoglycemic drugs; F17.210 Nicotine dependence, cigarettes, uncomplicated; F41.9 Anxiety disorder, unspecified; L28.0 Lichen simplex chronicus; L29.9 Pruritus, unspecified; T37.8X5A Adverse effect of other specified systemic anti-infectives and antiparasitics, initial encounter
CPT/HCPCS: 36415; 36416; 80048; 80053; 80074; 81001; 83605; 85025; 85652; 86140; 86780; 87040; 87389; A4216; J0696; J1650; J2270; J3370; J7050